=== PATIENT | female | born 1985 | race African-American/Black ===

== ENCOUNTER 2018-07-17 19:46 | Emergency (ER) | payer OTHER ==
[2018-07-17 19:52] VITALS: BP 126/64; PULSE 94; TEMP 99.2; BMI 39.4
--- NOTE | 2018-07-17 20:48 | PDOC ---
History of Present Illness - General Chief Complaint: Non EmpBld/Body Flud Exposure Stated Complaint: STUCK BY NEEDLE Time Seen by Provider: 07/17/18 19:52 History Source: Patient Exam Limitations: No Limitations - History of Present Illness Initial Comments: 07/17/18 20:43 32-year-old female female with no past medical history who works at the dialysis center presents to the ED with fingerstick to her left fifth digit. Patient states the needle was used on 30+-year-old and had noted a small amount of blood after being stuck on her fingertip patient states immediately wash with soap and water and the other patient involved opted to have a blood sent for hep C and HIV. Patient is requesting prophylactic treatment for HIV. Timing/Duration: 1-3 hours Severity: mild Associated Symptoms: reports: denies symptoms Past History - Travel Traveled outside of the country in the last 30 days: No Close contact w/someone who was outside of country & ill: No - Past Medical History Allergies/Adverse Reactions: Allergies Allergy/AdvReac Type Severity Reaction Status Date / Time latex Allergy Verified 07/17/18 19:50 Penicillins Allergy Verified 07/17/18 19:50 Home Medications: Ambulatory Orders NK [No Known Home Medication] 07/17/18 COPD: No - Suicide/Smoking/Psychosocial Hx Smoking History: Never smoked Patient Lives Alone: No Lives with/in: spouse/SO Review of Systems - Review of Systems Able to Perform ROS?: No Is the patient limited Wolof proficient: No Constitutional: No: Symptoms Reported Integumentary: Yes: See HPI *Physical Exam - Vital Signs Last Vital Signs Temp Pulse Resp BP Pulse Ox 99.2 F 94 H 18 126/64 99 07/17/18 19:50 07/17/18 19:50 07/17/18 19:50 07/17/18 19:50 07/17/18 19:50 - Physical Exam General Appearance: Yes: Nourished, Appropriately Dressed. No: Apparent Distress Integumentary: positive: Other (unable to visualize needle stick puncture site.) Neurologic: positive: Motor Strength /5 ED Treatment Course - LABORATORY CBC & Chemistry Diagram: 07/17/18 20:30 07/17/18 20:30 Medical Decision Making - Medical Decision Making 07/17/18 20:47 CC:Used Needle stick while at work at the dialysis center. Exam: No acute findings plan: Blood work for exposure to body fluids ordered patient states last tetanus was one year ago. 07/17/18 21:54 Laboratory Tests 07/17/18 07/17/18 07/17/18 20:30 20:30 20:30 WBC 6.2 Hgb 12.8 Hct 39.9 Absolute Neuts (auto) 3.0 Lymphocytes % 42.7 H Sodium 139 Potassium 4.4 Chloride 106 Carbon Dioxide 25 Anion Gap 9 BUN 15 Creatinine 0.7 Random Glucose 76 Uric Acid 5.5 Calcium 9.0 Phosphorus 3.8 Total Bilirubin 0.3 GGT 33 AST 16 ALT 25 Alkaline Phosphatase 97 LD Total 193 Total Protein 7.7 Albumin 3.7 Triglycerides 47 Serum , Qual Hep Bs Antigen Pending Hep Bs Antibody Pending Hep Bs Antibody, Quant Pending Hep C Ab Diagnostic HIV 1&2 Antibody Screen HIV P24 Antigen 07/17/18 07/17/18 07/17/18 20:30 20:30 20:30 WBC Hgb Hct Absolute Neuts (auto) Lymphocytes % Sodium Potassium Chloride Carbon Dioxide Anion Gap BUN Creatinine Random Glucose Uric Acid Calcium Phosphorus Total Bilirubin GGT AST ALT Alkaline Phosphatase LD Total Total Protein Albumin Triglycerides Serum , Qual Negative Hep Bs Antigen Hep Bs Antibody Hep Bs Antibody, Quant Hep C Ab Diagnostic Pending HIV 1&2 Antibody Screen Negative HIV P24 Antigen Negative Requesting HIV prophylactic pack. Patient given PEP from the ER will be given a prescription for the rest patient states will follow up with other patient involved at her facility *DC/Admit/Observation/Transfer Diagnosis at time of Disposition: Exposure to body fluid due to accidental needlestick injury - Discharge Dispostion Disposition: HOME Condition at time of disposition: Good - Referrals - Patient Instructions Printed Discharge Instructions: DI for Accidental Exposure to Body Fluids Additional Instructions: Please follow-up with other patient involved and continue medication as requested until other patient's results are reviewed. Understand you should be retested again in 6 months for HIV - Post Discharge Activity Forms/Work/School Notes: Back to Work
[2018-07-17 21:08] LABS: BASO % 1.1 % (0-2.0); EOS % 1.1 % (0-4.5); HEMATOCRIT 39.9 % (32.4-45.2); HEMOGLOBIN 12.8 GM/dL (10.7-15.3); LYMPH % 42.7 % (8-40); MCH 25.2 pg (25.7-33.7); MCHC 32.2 g/dl (32.0-36.0); MEAN CELL VOLUME 78.3 fl (80-96); MONO % 6.1 % (3.8-10.2); PLATELET COUNT 366 K/MM3 (134-434); RBC 5.09 M/mm3 (3.60-5.2); RDW 14.7 % (11.6-15.6); WHITE BLOOD COUNT 6.2 K/mm3 (4.0-10.0)
[2018-07-17 21:33] LABS: ALBUMIN 3.7 g/dl (3.4-5.0); ALK PHOS 97 U/L (45-117); ANION GAP 9 MMOL/L (8-16); BILIRUBIN,TOTAL 0.3 mg/dL (0.2-1); BLOOD UREA NITROGEN 15 mg/dL (7-18); CHLORIDE 106 mmol/L (98-107); CHOLESTEROL 144 mg/dL (50-200); CO2 25 mmol/L (21-32); CREATININE 0.7 mg/dL (0.55-1.3); GAMMA GLUTAMYL TRANSPEPTIDASE 33 U/L (5-85); GLUCOSE,RANDOM 76 mg/dL (74-106); PHOSPHOROUS 3.8 mg/dL (2.5-4.9); POTASSIUM 4.4 mmol/L (3.5-5.1); SGOT/AST 16 U/L (15-37); SGPT/ALT 25 U/L (13-61); SODIUM 139 mmol/L (136-145); TOT PROT 7.7 g/dl (6.4-8.2); TRIGLYCERIDES 47 mg/dL (0-150); URIC ACID 5.5 mg/dL (2.6-7.2)
[2018-07-17 21:53] LABS: LDH 193 U/L (84-246)
[2018-07-17] MEDS ORDERED: HIV POST EXPOSURE PROPHYLAXIS KIT NR ONE (21:53)
[2018-07-17] MEDS ORDERED: HIV POST EXPOSURE PROPHYLAXIS KIT PO ONE (21:54)
[2018-07-20 06:06] LABS: HBsAG SCREEN Negative (Negative)
== END 2018-07-17 22:00 | disposition home or self-care (01) ==
LOC: JERFT 19:46
DX: Z77.21 Contact with and (suspected) exposure to potentially hazardous body fluids (principal); S61.237A Puncture wound without foreign body of left little finger without damage to nail, initial encounter; W46.1XXA Contact with contaminated hypodermic needle, initial encounter; Y93.F9 Activity, other caregiving; Y92.538 Other ambulatory health services establishments as the place of occurrence of the external cause; Y99.0 Civilian activity done for income or pay
CPT/HCPCS: 36415; 80053; 82465; 82977; 83615; 84100; 84478; 84550; 84703; 85025; 86317; 86706; 86803; 87340; 87389; 99281-25